=== PATIENT | female | born 1980 | race Caucasian/White ===

== ENCOUNTER 2017-06-29 11:15 | Outpatient (RCR) | payer BC ==
[~2017-06-29 11:15] MED LIST: EPA FISH OIL1000 MG PO; PRENATAL1 TA1 PO; ZOLOFT 50MG50 MG PO; ZYRTEC5 MG PO
== END 2017-07-23 ==
LOC: MKS.ESL.PT
DX: Z30.433 Encounter for removal and reinsertion of intrauterine contraceptive device (principal); N39.46 Mixed incontinence; N81.10 Cystocele, unspecified

== ENCOUNTER 2017-12-25 08:38 | Day surgery (SDC) | payer OTHER ==
[~2017-12-25] VITALS: Ht 170.2 cm; Wt 78.1 kg
[2017-12-25 09:29] VITALS: BP 111/77; PULSE 96; TEMP 97.5
[2017-12-25] MEDS ORDERED: PRILOTC PO (09:33)
[2017-12-25] MEDS ORDERED: ZYRTEC 10MG10 MG PO (09:34)
[2017-12-25] MEDS ORDERED: MUCINEX DM 30 M1 TE1 PO (09:35)
[2017-12-25] MEDS ORDERED: SUDAFED 12 HOU120 MG PO (09:35)
[2017-12-25] MEDS ORDERED: RT ADVAIR HFA 1112 G IH (09:36)
[2017-12-25 10:55] VITALS: BP 105/81; PULSE 90; TEMP 97.4
[2017-12-25 11:10] VITALS: BP 107/72; PULSE 89
[2017-12-25 11:25] VITALS: BP 112/80; PULSE 85
== END 2017-12-25 11:50 | disposition home or self-care (01) ==
LOC: SDCO 08:38
DX: K21.0 Gastro-esophageal reflux disease with esophagitis (principal); Z91.040 Latex allergy status; Z87.891 Personal history of nicotine dependence
CPT/HCPCS: OP; J2250; J3010; J7030

== ENCOUNTER 2019-09-04 21:53 | Emergency (ER) | payer BC ==
[~2019-09-04] VITALS: Ht 170.2 cm; Wt 75.0 kg
[~2019-09-04 21:53] MED LIST changes: +MUCINEX DM 30 M1 TE1 PO; +PRILOTC PO; +RT ADVAIR HFA 1112 G IH; +SUDAFED 12 HOU120 MG PO; +ZYRTEC 10MG10 MG PO
[2019-09-04 21:55] VITALS: TEMP 97.5
[2019-09-04] MEDS ORDERED: MULTI VITAMINS1 TAB PO (22:32)
[2019-09-04] MEDS ORDERED: PROBIOTIC-SUNMARK (22:32)
[2019-09-05 01:18] VITALS: BP 100/61; PULSE 82
== END 2019-09-05 01:18 | disposition home or self-care (01) ==
LOC: COL.ER 21:53
DX: T18.128A Food in esophagus causing other injury, initial encounter (principal); K21.9 Gastro-esophageal reflux disease without esophagitis
CPT/HCPCS: J1610; J2060; J2250; J2405; J3010; J7030

== ENCOUNTER 2019-10-09 19:25 | Emergency (ER) | payer BC ==
[~2019-10-09] VITALS: Ht 170.2 cm; Wt 75.0 kg
[~2019-10-09 19:25] MED LIST changes: +MULTI VITAMINS1 TAB PO; +PROBIOTIC-SUNMARK
[2019-10-09 19:39] VITALS: TEMP 98.4
--- NOTE | 2019-10-09 21:23 | NUR ---
2099 - PATIENT SIGNED CONSENT FOR EGD WITH REMOVAL OF FOOD IMPACTION. TRANSPORTED TO ENDO ROOM [address] TORRES AT BEDSIDE. 2104 - MONITORS APPLIED. PATIENT REPOSITIONED ONTO LEFT SIDE. STATES "WAIT, I JUST BURPED. I THINK IT CLEARED." PATIENT OFFERED GLASS OF WATER AND TOLERATES DRINKS WITHOUT INCIDENT. PROCEDURE CANCELED. 2109 - EVENTS REPORTED TO ER NURSE. NO QUESTIONS OR CONCERNS AT THIS TIME. 2113 - PATIENT RETURNED TO ER ROOM 12 PER CART FOR DISCHARGE.
[2019-10-09 21:59] VITALS: BP 108/74; PULSE 85
== END 2019-10-09 21:59 | disposition home or self-care (01) ==
LOC: COL.ER 19:25
DX: T18.128A Food in esophagus causing other injury, initial encounter (principal); Z90.49 Acquired absence of other specified parts of digestive tract
CPT/HCPCS: J2060; J2405; J2704; J7030